=== PATIENT | female | born 1955 | race Caucasian/White ===

== ENCOUNTER → 2017-10-09 | Outpatient (CLI) | payer OTHER ==
[~2017-10-09] MED LIST: ALPR-459 PO; ASCO-191 PO; ASPI-1471 PO; AZEL137S NS; CALC1TAB32 PO; CHOL100039 PO; CIPR-344 PO; DICL100G39 TP; DIPH-543 PO; ESCI10TA8 PO; ESCI5TAB10 PO; ESTR42.59 VG; LISI-362 PO; LISI20TA29 PO; MONT10TA PO; MULT-865 PO; NITR-1 PO; OXY39T TD; OXYB10TA16 PO; OXYB5TAB80 PO; OXYC-865 PO; SALM1CAP3 PO; TRAZ-163 PO; UREA85CR TOP
== END ==
LOC: LAB 11:00
PROVIDERS: ATTEND Emergency Medicine
DX: I10 Essential (primary) hypertension (principal)
CPT/HCPCS: 36415; 82310; 82374; 82435; 82565; 82947; 84132; 84295; 84520